=== PATIENT | female | born 1960 | race Caucasian/White ===

== ENCOUNTER 2020-10-25 23:37 | Emergency (ER) | payer BC ==
[~2020-10-25] VITALS: Ht 177.8 cm; Wt 95.4 kg
[2020-10-26] MEDS ORDERED: PHENAZOPYRIDINE 200 MG TABLET PO ONE
[2020-10-26 00:13] LABS: BASOPHILS % (AUTO) 0 % (0-1); EOSINOPHILS % (AUTO) 1 % (1-7); LYMPHOCYTES % (AUTO) 16 % (22-44); MEAN CORPUSCULAR HEMOGLOBIN 29.7 pg (27.0-34.8); MEAN PLATELET VOLUME 9.4 fL (7.4-10.4); MONOCYTES % (AUTO) 6 % (2-9); NEUTROPHILS % (AUTO) 77 % (42-75); PLATELET COUNT 228 x10^3/uL (130-400); RED BLOOD COUNT 4.78 x10^6/uL (3.82-5.3); RED CELL DISTRIBUTION WIDTH 13.9 % (9.6-15.2)
[2020-10-26 00:14] LABS: MD NO
[2020-10-26] MEDS ORDERED: PHENAZOPYRIDINE 200 MG TABLET ONE (00:15)
[2020-10-26 00:27] LABS: ALANINE AMINOTRANSFERASE 33 U/L (12-78); ALBUMIN 4.2 g/dL (3.4-5.0); ANION GAP 7 mmol/L (5-15); CALCIUM 9.5 mg/dL (8.5-10.1); CHLORIDE 110 mmol/L (98-107); CREATININE 0.99 mg/dL (0.55-1.02)
[2020-10-26 00:29] LABS: ALKALINE PHOSPHATASE 55 U/L (45-117); BILIRUBIN,TOTAL 0.3 mg/dL (0.2-1.0); TOTAL PROTEIN 7.8 g/dL (6.4-8.2)
--- NOTE | 2020-10-26 00:30 | NUR ---
Assumed care of patient at this time. This is a 60 yo female who presents to the ER c/o bladder pain, increased frequency/urgency since yesterday. Pt reports hx of UTI's and states this is similar. Blood dark red with sediment noted. Pt reports she has been taking super concentrated cranberry pills, unsure if blood or cranberry in urine. Pt steady upon ambulation to restroom and back to room. Pt nontender to palp on flanks. Pt AO x 4. at bedside. Call light within reach. Will cont to farzad pt.
[2020-10-26 00:51] LABS: MICROSCOPIC INDICATED
[2020-10-26] MEDS ORDERED: CEFDINIR 300 MG CAPSULE PO ONE (01:30)
[2020-10-26] MEDS ORDERED: CEFDINIR 300 MG CAPSULE ONE (01:46)
[2020-10-26 02:05] VITALS: BP 131/75
== END 2020-10-26 02:07 | disposition home or self-care (01) ==
LOC: ED 23:59
DX: N30.01 Acute cystitis with hematuria (principal); E03.9 Hypothyroidism, unspecified
CPT/HCPCS: 36415; 80053; 81001; 85025; 87086; 99283